=== PATIENT | male | born 1965 | race Two or more races ===

== ENCOUNTER 2018-07-22 17:51 | Emergency (ER) | payer OTHER ==
[~2018-07-22] VITALS: Ht 188 cm; Wt 104.3 kg
[2018-07-22] MEDS ORDERED: ONDANSETRON 4 MG TAB.RAPDIS ONE (18:24)
[2018-07-22] MEDS ORDERED: IV NS 0.9% 1,000 ML BAG IV ONE ×2 (18:30→21:30)
[2018-07-22] MEDS ORDERED: ONDANSETRON 4 MG TAB.RAPDIS PO ONE (18:30)
[2018-07-22 18:40] LABS: BASOPHILS % (AUTO) 0.2 % (0.0-2.0); EOSINOPHILS % (AUTO) 0.1 % (0.0-6.0); HEMATOCRIT 47 % (39-51); LYMPHOCYTES # (AUTO) 0.8 /CMM (0.8-4.8); LYMPHOCYTES % (AUTO) 7.5 % (20.0-44.0); MEAN CORPUSCULAR HGB CONC 34 g/dl (31.0-36.0); MEAN CORPUSCULAR VOLUME 92 fL (80-96); MONOCYTES # (AUTO) 0.7 /CMM (0.1-1.30); MONOCYTES % (AUTO) 6.1 % (2.0-12.0); NEUTROPHILS # (AUTO) 9.4 /CMM (1.8-8.9); NEUTROPHILS % (AUTO) 86.1 % (43.0-81.0); PLATELET COUNT (AUTO) 173 /CMM (150-450); RED BLOOD CELL COUNT(AUTO) 5.11 MIL/uL (4.5-6.0); WHITE BLOOD COUNT (AUTO) 10.9 K/uL (4.3-11.0)
--- NOTE | 2018-07-22 18:40 | NUR ---
N/V SINCE 1100, MILD ABD PAIN, THEN DULL/THROBBING SUBSTERNAL CP. PT AAOX4, VSS. DENIES SOB,DIZZINESS, DIARRHEA @ THIS TIME. PT SEEN & EVAL'D BY KISHA RUGGIERO. PLACED ON BUFFET RUNNER, NSR, NO ECTOPY NOTED. MEDICATED FOR NAUSEA & WILL CONT TO MONITOR.
[2018-07-22 18:47] LABS: CALCIUM, SERUM 9.2 mg/dL (8.5-10.1); CARBON DIOXIDE 28 mmol/L (21-32); CHLORIDE 105 mmol/L (98-107); CREATININE 1.8 mg/dL (0.6-1.3); GLUCOSE 148 mg/dL (74-106); POTASSIUM 4.7 mmol/L (3.5-5.1); SODIUM SERUM 142 mmol/L (136-145); UREA NITROGEN, BLOOD 24 mg/dL (7-18)
[2018-07-22 18:53] LABS: ALANINE AMINOTRANSFERASE 64 U/L (12-78); ALBUMIN 4.1 g/dL (3.4-5.0); ALKALINE PHOSPHATASE 99 U/L (46-116); ASPARTATE AMINOTRANSFERASE 37 U/L (15-37); BILIRUBIN,DIRECT 0.1 mg/dL (0.0-0.2); BILIRUBIN,TOTAL 0.5 mg/dL (0.2-1.0); TOTAL PROTEIN, SERUM 7.1 g/dL (6.4-8.2)
--- NOTE | 2018-07-22 19:16 | NUR ---
RECEIVED REPORT FROM AMANDA MCDOWELL FOR CARLITA
--- NOTE | 2018-07-22 19:24 | NUR ---
FLU SWAB COLLECTED AND SENT TO LAB
[2018-07-22] MEDS ORDERED: MORPHINE SULFATE INJ 4 MG/ML DISP.SYRIN ONE (19:27)
[2018-07-22] MEDS ORDERED: MORPHINE SULFATE INJ 2 MG/ML DISP.SYRIN IV ONE (19:30)
--- NOTE | 2018-07-22 19:30 | NUR ---
PT UNABLE TO PROVIDE URINE SAMPLE AT THIS TIME. ER PA AWARE
--- NOTE | 2018-07-22 19:51 | NUR ---
URINE COLLECTED AND SENT TO LAB
[2018-07-22 20:06] LABS: APPEARANCE,URINE Clear (CLEAR); BILIRUBIN,URINE Negative (NEGATIVE); BLOOD, URINE Negative Ery/uL (NEGATIVE); COLOR,URINE Dark (YELLOW); KETONES,URINE 15 (NEGATIVE); LEUKOCYTE ESTERASE ,URINE Negative (NEGATIVE); NITRITE, URINE Negative (NEGATIVE); PH,URINE 5.5 (5.0-8.0); PROTEIN,URINE 30 mg/dl (NEGATIVE); UGLUCOSE Negative (NEGATIVE); UROBILINOGEN,URINE 0.2 EU/dL (0.2)
[2018-07-22 20:23] LABS: BACTERIA,URINE Few /HPF (None Seen); MUCUS,URINE Many /LPF (None Seen); RBC,URINE 0-2 /HPF (0-2); SQUAMOUS EPITHELIAL CELL,UR Few /HPF (None Seen); WBC,URINE 0-2 /HPF (0-3)
[2018-07-22] MEDS ORDERED: IOHEXOL-350 100 ML VIAL IV ONE (21:24)
[2018-07-22] MEDS ORDERED: CT SWABBABLE VALVE TRANS SET 1 EA INFUS.SET MC ONE (21:24)
[2018-07-22] MEDS ORDERED: IV NS 0.9% 250 ML IV ONE (21:25)
--- NOTE | 2018-07-22 21:32 | NUR ---
PT BROUGHT BY RADIOLOGY FOR CT
--- NOTE | 2018-07-22 22:50 | NUR ---
CALLED [facility] SPOKE WITH KAMILLE, FAXED OVER LABS AND IMAGES.
[2018-07-22] MEDS ORDERED: LABETALOL 20 MG/4 ML VIAL IV ONE (23:00)
--- NOTE | 2018-07-22 23:01 | NUR ---
Dr Gooden paged per dr Kate
--- NOTE | 2018-07-22 23:06 | NUR ---
Dr Merrill paged per dr Kate.
[2018-07-22] MEDS ORDERED: LABETALOL HCL IV 100MG VIAL ONE (23:14)
--- NOTE | 2018-07-22 23:15 | NUR ---
Alfonso called for [facility] transport, ETA 0045.
--- NOTE | 2018-07-22 23:16 | NUR ---
[facility] does not have dye house wheel operator units available
--- NOTE | 2018-07-22 23:18 | NUR ---
CALLED [facility] FOR TRANSPORT ETA OF 30 MINS WAS GIVEN.
--- NOTE | 2018-07-22 23:19 | NUR ---
[facility] has no roll up machine operator units available magdiel
[2018-07-22] MEDS ORDERED: LABETALOL HCL IV 100MG VIAL IV ONE (23:30)
[2018-07-22 23:34] VITALS: BP 128/54
--- NOTE | 2018-07-22 23:36 | NUR ---
GAVE REPORT TO NÉSTOR BRIONES RN FOR CARLITA
--- NOTE | 2018-07-22 23:40 | NUR ---
GAVE REPORT TO WILLIAMS MCNEILL FOR CARLITA
== END 2018-07-22 23:46 | disposition short-term general hospital (02) ==
LOC: ER 17:54
DX: I71.00 Dissection of unspecified site of aorta (principal); R55 Syncope and collapse; K21.9 Gastro-esophageal reflux disease without esophagitis; F17.200 Nicotine dependence, unspecified, uncomplicated; I25.10 Atherosclerotic heart disease of native coronary artery without angina pectoris; F43.9 Reaction to severe stress, unspecified; Z90.89 Acquired absence of other organs; Z60.2 Problems related to living alone
CPT/HCPCS: 36415; 71045-TC; 74175-TC; 80048-TC; 80076-TC; 81000-TC; 83690-TC; 84484-TC; 85025-TC; 85378-TC; 85730-TC; 87400; J2270; J3490; J7030; J7050; Q0162; Q9967

== ENCOUNTER 2018-08-07 20:56 | Inpatient (IN) | payer OTHER ==
[~2018-08-07] VITALS: Ht 188 cm; Wt 97.5 kg
[2018-08-07] MEDS ORDERED: DILTIAZEM HCL 50 MG IV IV ONE ×2 (21:00→22:00)
--- NOTE | 2018-08-07 21:09 | NUR ---
[id number] FROM HOME C/O PALPITATIONS X 45 MIN. PATIENT S/P SURGERY FOR AORTIC DISSECTION X 2 WEEKS AGO. PER RA PATIENT IN AFIB W/RVR. PT IS AOX4, AMBULATORY, RR EVEN AND UNLABORED. SKIN WARM TO TOUCH, DRY, INTACT. NO ACUTE DISTRESS NOTED. DENIES PAIN, SOB, DIZZINESS, WEAKNESS, N/V/D. SEEN BY DR SMITH.
[2018-08-07 21:12] LABS: BASOPHILS # (AUTO) 0.1 /CMM (0.0-0.2); BASOPHILS % (AUTO) 0.9 % (0.0-2.0); EOSINOPHILS % (AUTO) 1.9 % (0.0-6.0); HEMATOCRIT 35 % (39-51); HEMOGLOBIN 11.7 g/dL (13.5-17.5); LYMPHOCYTES # (AUTO) 1.5 /CMM (0.8-4.8); LYMPHOCYTES % (AUTO) 12.9 % (20.0-44.0); MEAN CORPUSCULAR HGB CONC 33 g/dl (31.0-36.0); MEAN CORPUSCULAR VOLUME 93 fL (80-96); MONOCYTES # (AUTO) 1.2 /CMM (0.1-1.30); NEUTROPHILS # (AUTO) 8.3 /CMM (1.8-8.9); NEUTROPHILS % (AUTO) 73.3 % (43.0-81.0); PLATELET COUNT (AUTO) 544 /CMM (150-450); RED BLOOD CELL COUNT(AUTO) 3.82 MIL/uL (4.5-6.0); WHITE BLOOD COUNT (AUTO) 11.4 K/uL (4.3-11.0)
[2018-08-07] MEDS ORDERED: DILTIAZEM HCL 25 MG IV ONE ×2 (21:17→22:52)
[2018-08-07 21:21] LABS: CALCIUM, SERUM 8.4 mg/dL (8.5-10.1); CARBON DIOXIDE 23 mmol/L (21-32); CHLORIDE 100 mmol/L (98-107); CREATININE 1.3 mg/dL (0.6-1.3); GLUCOSE 168 mg/dL (74-106); POTASSIUM 4.1 mmol/L (3.5-5.1); SODIUM SERUM 135 mmol/L (136-145); UREA NITROGEN, BLOOD 20 mg/dL (7-18)
--- NOTE | 2018-08-07 21:21 | NUR ---
XRAY AT BEDSIDE
[2018-08-07 21:36] LABS: ALANINE AMINOTRANSFERASE 51 U/L (12-78); ALKALINE PHOSPHATASE 109 U/L (46-116); ASPARTATE AMINOTRANSFERASE 29 U/L (15-37); BILIRUBIN,DIRECT 0.2 mg/dL (0.0-0.2); BILIRUBIN,TOTAL 0.5 mg/dL (0.2-1.0); TOTAL PROTEIN, SERUM 6.9 g/dL (6.4-8.2)
[2018-08-07] MEDS ORDERED: DILTIAZEM HCL 50 MG IV ONE ×3 (21:59→23:00)
[2018-08-07] MEDS ORDERED: IV NS 0.9% 500 ML BAG IV ONE (22:00)
--- NOTE | 2018-08-07 22:06 | NUR ---
PT SITTING COMFORTABLY IN BED. WILL CONT TO CLOSELY MONITOR.
[2018-08-07] MEDS ORDERED: IOHEXOL-300 100 ML VIAL IV ONE (22:25)
[2018-08-07] MEDS ORDERED: IV NS 0.9% 250 ML IV ONE (22:26)
[2018-08-07] MEDS ORDERED: CT SWABBABLE VALVE TRANS SET 1 EA INFUS.SET MC ONE (22:26)
--- NOTE | 2018-08-07 22:28 | NUR ---
PT TAKEN TO CT VIA DIANN
--- NOTE | 2018-08-07 22:39 | NUR ---
PT RETURNED FROM CT
[2018-08-07] MEDS ORDERED: DILTIAZEM HCL IV 125 MG in IV D5W 100 ML IV PRN (23:00)
--- NOTE | 2018-08-07 23:17 | NUR ---
PT RESTING COMFORTABLY WITH EYES CLOSED. STARTED ON CARDIZEM DRIP. WILL CLOSELY MONITOR
--- NOTE | 2018-08-07 23:45 | NUR ---
ENDORSEMENT GIVEN TO JULY MENDEZ FOR CARLITA
--- NOTE | 2018-08-07 23:45 | NUR ---
RECEIVED REPORT FROM ANNALISE MCDOWELL FOR CARLITA
[2018-08-08] VITALS (31 sets, daily range): BP systolic 100–142; BP diastolic 44–85
[2018-08-08] MEDS ORDERED: AMIODARONE 150 MG/3 ML VIAL IV ONE ×2 (00:24→00:26)
[2018-08-08] MEDS ORDERED: AMIODARONE 150 MG in IV D5W 100 ML IV ONE (00:30)
[2018-08-08] MEDS ORDERED: AMIODARONE 900 MG in IV D5W 482 ML IV PRN ×2 (00:30→10:30)
[2018-08-08] MEDS ORDERED: HYDR-4354 PO (01:02)
[2018-08-08] MEDS ORDERED: METOPROLOL (01:02)
[2018-08-08] MEDS ORDERED: COUMADIN (01:02)
[2018-08-08] MEDS ORDERED: DOCU (01:02)
--- NOTE | 2018-08-08 01:10 | NUR ---
GAVE REPORT TO JON MCDOWELL FOR CARLITA
--- NOTE | 2018-08-08 01:30 | NUR ---
PT TRANSFERED PER ACLS PROTOCOL
[2018-08-08] MEDS: HYDROCODONE/APAP 5/325MG 1 EACH TABLET PO PRN ×3 (02:14→20:34)
[2018-08-08] MEDS ORDERED: ZOLPIDEM TARTRATE 5 MG TABLET PO PRN (02:30)
[2018-08-08] MEDS ORDERED: Z GUARD REMEDY 2 OZ OINT TP PRN (02:30)
[2018-08-08] MEDS ORDERED: ACETAMINOPHEN 325 MG TABLET PO PRN (02:30)
[2018-08-08] MEDS ORDERED: ONDANSETRON HCL/PF 4 MG/2 ML VIAL IVP PRN (02:30)
--- NOTE | 2018-08-08 07:45 | NUR ---
rn nicu note received patient in bed alert , oriented x3 , on tele monitor with afib hr 145 , no c\o chest pain at this time , rt ac and lt hand hl intact , on amiodarone drip 0.5 mg per hospital protocol , bed in lowest and locked position , having breakfast at this time , plan of care discussed with patient will cont to monitor close Addendum: 08/08/18 at 0752 by ISAI PÉREZ RN spoke wit dr aaron learning support assistant aware that patient with afib hr 145, stated that will see patient soon
[2018-08-08] MEDS ORDERED: IV LR 500 ML IV ONE ×2 (08:00→09:00)
[2018-08-08 08:58] LABS: BASOPHILS # (AUTO) 0.1 /CMM (0.0-0.2); BASOPHILS % (AUTO) 0.8 % (0.0-2.0); EOSINOPHILS % (AUTO) 1.2 % (0.0-6.0); HEMATOCRIT 34 % (39-51); HEMOGLOBIN 11.3 g/dL (13.5-17.5); LYMPHOCYTES % (AUTO) 10.5 % (20.0-44.0); MEAN CORPUSCULAR HGB CONC 33 g/dl (31.0-36.0); MEAN CORPUSCULAR VOLUME 93 fL (80-96); MONOCYTES # (AUTO) 0.5 /CMM (0.1-1.30); MONOCYTES % (AUTO) 5.8 % (2.0-12.0); NEUTROPHILS # (AUTO) 7.5 /CMM (1.8-8.9); NEUTROPHILS % (AUTO) 81.7 % (43.0-81.0); PLATELET COUNT (AUTO) 482 /CMM (150-450); RED BLOOD CELL COUNT(AUTO) 3.66 MIL/uL (4.5-6.0); WHITE BLOOD COUNT (AUTO) 9.1 K/uL (4.3-11.0)
[2018-08-08 09:25] LABS: CALCIUM, SERUM 8.8 mg/dL (8.5-10.1); CREATININE 1.2 mg/dL (0.6-1.3)
--- NOTE | 2018-08-08 09:26 | NUR ---
LINDERMAN MACHINE OPERATOR NOTE SEEN BY DR TOBIAS BOAT CANVAS INSTALLER NOTIFIED 5HAT HR AFIB 148 AND PATIENT ON AMIODARONE DRIP STATED OK CONT TO HAVE DRIP TO COMPLEAT AND WILL F\U WITH Addendum: 08/08/18 at 0934 by SIAI PÉREZ RN PER DR AMAURI FRANK TO GIVE LA 500 BOLUS . SANDRA SPOKE ABOUT COUMARIN ORDERED SALTED TO HOLD FOR NOW INR IS3.07 Addendum: 08/08/18 at 0947 by ISAI PÉREZ RN SPOKE WITH PHARMACIST NOTIFIED THAT PER DR SAINI BOAT CANVAS INSTALLER OK TO COMPLETE AMIODARONE DRIP AND AFTER CALL TO IF STILL AFIB CONT DRIP AT 0.5 MG IF CONVERTED TO SR WILL START PO AMIODARONE Addendum: 08/08/18 at 1036 by ISAI PÉREZ RN CORRECTION SPELLING ZAC TO GIVE LR 500 ML BOLUS AND HOLD COUMADIN FOR NOW ,INR 3.07
[2018-08-08] MEDS ORDERED: IV LR 1000 ML 1,000 ML IV PRN (09:30)
--- NOTE | 2018-08-08 10:00 | NUR ---
POULTRY DRESSING WORKER NOTE DR SAINI NOTIFIED THAT ON TELE MONITOR AFIB HR 145-150 ,STATED TO CONT TO ADMINISTER AMIODARONE DRIP TILL COMPLETED
--- NOTE | 2018-08-08 10:50 | NUR ---
HUMANITIES INSTRUCTOR NOTE DR MESA CALLED WITH ORDER 20 MG IVP LASIX AND COUMADIN 2.MG AWARE THAT INR EARLIER WAS 3.07,2D ECHO DOING NOW AT BEDSIDE
[2018-08-08] MEDS ORDERED: FUROSEMIDE 20 MG/2 ML VIAL IV SCH (11:00)
--- NOTE | 2018-08-08 11:11 | NUR ---
VOLLEYBALL REFEREE EDUARDO SPOKE WITH DR SAINI NOTIFIED THAT PER ORDER DR MARTEL CARDIAC SURGEON GIVE ORDER LASIX 20 MG IVP FOR NOW , HOLD LASIX FOR NOW AND HE WILL TALK TO DR MESA, PHONE NUMBER GIVEN, WILL F]U
--- NOTE | 2018-08-08 12:21 | NUR ---
PROJECT OFFICER NOTE SEEN BY DR PATE ,WITH NEW ORDER TO DO CHEST X RAY IN AM ,WILL F\U
--- NOTE | 2018-08-08 13:34 | NUR ---
WARDROBE MISTRESS NOTE SPOKE WITH DR MESA , NOTIFIED THAT PER DR SAINI ZIGZAG STITCHER OK TO HOLD LASIX , STATED ITS OK
--- NOTE | 2018-08-08 13:42 | NUR ---
BRAKE RIDER NOTE SEEN BY DR MESA AWARE THAT HR 139 AFIB WITH ORDER DIGOXIN TIME ONE, WILL F\U Addendum: 08/08/18 at 1548 by ISAI PÉREZ RN 1342 DR MESA NOTIFIED THAT ON TELE MONITOR AFIB HR 139-145 AT THIS TIME , STATED OK TO CONT TO ADMINISTERED AMIODARONE DRIP ALSO GAVE ORDER TO GIVE DIGOXIN 0.5 MG IV ONE TIME Addendum: 08/08/18 at 1835 by ISAI PÉREZ RN PER DR MARTEL GIVE 2MG OF COUMADIN AWARE OF INR RESULT
[2018-08-08] MEDS ORDERED: DIGOXIN INJ 0.5 MG/2 ML AMPUL IV ONE (14:00)
--- NOTE | 2018-08-08 16:38 | NUR ---
ACCOUNT DEVELOPMENT REPRESENTATIVE NOTE C\O GENERALIZED CHEST PAIN AND BODY PAIN NORCO PO GIVEN SAT 95%
[2018-08-08] MEDS ORDERED: WARFARIN SODIUM 2 MG TABLET PO SCH (17:00)
[2018-08-08] MEDS ORDERED: WARFARIN SODIUM 1 MG TABLET PO SCH (17:00)
--- NOTE | 2018-08-08 17:38 | NUR ---
SPLIT AND DRUM ROOM SUPERVISOR NOTE SPOKE WITH DR MARTEL NOTIFIED THAT ON TELE MONITOR AFIB 140-144 ,ORDERED 2GM OF MAG IV AND CARDIZEM DRIP 10 MG \HR ALSO OK TO CONT TO ADMINISTER AMIODARONE DRIP
[2018-08-08] MEDS: Magnesium 1GM/D5W 100ML PREMIX 100 ML IV SCH ×2 (17:44→18:43)
[2018-08-08] MEDS: DILTIAZEM HCL IV 125 MG in IV D5W 100 ML IV PRN (18:00)
--- NOTE | 2018-08-08 18:00 | NUR ---
PORTABLE GRINDING MACHINE OPERATOR NOTE PER DR MESA STARTED CARDIZEM DRIP 10 MG\HR AND MAG 1 GM IV START TO INFUSE .CONT TO ADMINISTER AMIODARONE DRIP
[2018-08-09] VITALS (40 sets, daily range): BP systolic 101–140; BP diastolic 48–85
[2018-08-09] MEDS: HYDROCODONE/APAP 5/325MG 1 EACH TABLET PO PRN ×2 (03:49→20:10)
[2018-08-09] MEDS ORDERED: DILTIAZEM HCL 50 MG IV ONE (03:54)
[2018-08-09] MEDS: DILTIAZEM HCL IV 125 MG in IV D5W 100 ML IV PRN (04:16)
[2018-08-09 05:19] LABS: ALBUMIN 2.8 g/dL (3.4-5.0); BILIRUBIN,TOTAL 0.4 mg/dL (0.2-1.0); CALCIUM, SERUM 8.2 mg/dL (8.5-10.1); CREATININE 1.2 mg/dL (0.6-1.3); MAGNESIUM 1.9 mg/dL (1.8-2.4); PHOSPHORUS 3.1 mg/dL (2.5-4.9); POTASSIUM 3.9 mmol/L (3.5-5.1); TOTAL PROTEIN, SERUM 6.3 g/dL (6.4-8.2)
[2018-08-09 05:21] LABS: BASOPHILS # (AUTO) 0.1 /CMM (0.0-0.2); BASOPHILS % (AUTO) 0.9 % (0.0-2.0); EOSINOPHILS % (AUTO) 2.7 % (0.0-6.0); HEMATOCRIT 34 % (39-51); HEMOGLOBIN 11.1 g/dL (13.5-17.5); LYMPHOCYTES # (AUTO) 1.1 /CMM (0.8-4.8); MEAN CORPUSCULAR HGB CONC 33 g/dl (31.0-36.0); MEAN CORPUSCULAR VOLUME 93 fL (80-96); MONOCYTES # (AUTO) 0.8 /CMM (0.1-1.30); MONOCYTES % (AUTO) 8.5 % (2.0-12.0); NEUTROPHILS # (AUTO) 7.4 /CMM (1.8-8.9); NEUTROPHILS % (AUTO) 76.9 % (43.0-81.0); PLATELET COUNT (AUTO) 467 /CMM (150-450); RED BLOOD CELL COUNT(AUTO) 3.64 MIL/uL (4.5-6.0); WHITE BLOOD COUNT (AUTO) 9.6 K/uL (4.3-11.0)
[2018-08-09 05:33] LABS: THYROID STIMULATING HORMONE 1.328 uIU/mL (0.358-3.74)
--- NOTE | 2018-08-09 06:23 | NUR ---
PT REMAINS IN NO ACUTE DISTRESS IN BED. PT REMAINS ON CARDIZEM @ 10ML/HR WITH AFIB @ 108-125 BPM. PT NOT C/O ANY SOB OR DIFFICULTY BREATHING AT THIS TIME. PAIN MANAGEMENT CONTROLLED WITH NORCO 5-325. WILL ENDORSE CARE TO AM RN FOR CONTINUITY OF CARE.
--- NOTE | 2018-08-09 07:15 | NUR ---
HEATING OPERATORS ENGINEER OPENING NOTES RECEIVED PT IN BED, AWAKE A/OX4. PT IS AFIB 108-120. ON CARDIZEM DRIP AT 12ML/HR. GOAL HR 110. PT IS ON ROOM AIR O2 SAT 92%. BP WNL. PT HAS URINAL AT BEDSIDE CLEAR TWILA OUTPUT. PT COMPLAINING OF LIGHT HEADEDNESS.BED IN LOCKED/LOWEST POSITION. CALL LIGHT IN REACH.
--- NOTE | 2018-08-09 08:15 | NUR ---
CHEMICAL PUMPER NOTES MOORE,MANAGER LEAN ROUNDING WITH PT.
--- NOTE | 2018-08-09 08:30 | NUR ---
RT PATIENT REFUSED ABG DRAW. PATIENT AWAKE, ALERT, ZERO SOB, ON ROOM AIR. DID NOT WANT ABG DONE. RN NOTIFIED
[2018-08-09] MEDS: AMIODARONE HCL 200 MG TABLET PO SCH ×2 (09:25→20:09)
--- NOTE | 2018-08-09 15:16 | NUR ---
AUTO JOB ESTIMATOR NOTES PER DR SAINI EKG REVIEWED. PT CONVERTED TO NSR 88BPM. PT TO BE TITRATED TO 12MCG/HR DILTIAZEM.
--- NOTE | 2018-08-09 15:23 | NUR ---
DIRECTOR OF CONTENT MARKETING NOTES PER DR SAINI GIVE 3 TAB WARFARIN TODAY. Addendum: 08/09/18 at 1524 by SERG ALVARADO RN 3 TAB=3MG
--- NOTE | 2018-08-09 15:30 | NUR ---
STORM WINDOW INSTALLER NOTES PER DR ZI CENTENO TO BE DC'D. REPLACE WITH PO.
--- NOTE | 2018-08-09 15:35 | NUR ---
ADVERTISING PROJECT MANAGER NOTES PER ZAC MCCLURE TO GIVE 3MG WARFARIN TODAY.
--- NOTE | 2018-08-09 15:39 | NUR ---
DADO OPERATOR NURSE PER CHARGE NURSE, OK TO TITRATE CARDIZEM TO 10MG/HR.
--- NOTE | 2018-08-09 16:33 | NUR ---
MAXILLOFACIAL SURGEON NOTES DR PINON ROUNDING WITH PT. NO NEW ORDERS GIVEN
[2018-08-09] MEDS ORDERED: WARFARIN SODIUM 1 MG TABLET PO SCH (17:00)
[2018-08-09] MEDS: DILTIAZEM HCL 30 MG TABLET PO SCH (17:49)
--- NOTE | 2018-08-09 19:21 | NUR ---
ENVIRONMENTAL STUDIES PROFESSOR NOTES REPORT GIVEN TO PM NURSE FOR CARLITA. PT IS NOT IN DISTRESS. ALL NEEDS ATTENDED TO. CALL LIGHT IN REACH.
--- NOTE | 2018-08-09 20:00 | NUR ---
ASSISTANT MERCHANDISE MANAGER - NOTES - RECEIVED PT IN BED, AWAKE A/OX4. PT IS IN SR 80S. PT IS ON ROOM AIR O2 SAT 94%. BP WNL. PT HAS URINAL AT BEDSIDE CLEAR TWILA OUTPUT. PT COMPLAINING OF LIGHT HEADEDNESS.BED IN LOCKED/LOWEST POSITION. CALL LIGHT IN REACH.
[2018-08-10] VITALS (26 sets, daily range): BP systolic 105–135; BP diastolic 55–95
[2018-08-10] MEDS: DILTIAZEM HCL 30 MG TABLET PO SCH ×2 (00:03→05:35)
[2018-08-10] MEDS: HYDROCODONE/APAP 5/325MG 1 EACH TABLET PO PRN (00:29)
[2018-08-10 04:27] LABS: BASOPHILS # (AUTO) 0.1 /CMM (0.0-0.2); BASOPHILS % (AUTO) 1.1 % (0.0-2.0); EOSINOPHILS % (AUTO) 4.4 % (0.0-6.0); HEMATOCRIT 33 % (39-51); HEMOGLOBIN 11.1 g/dL (13.5-17.5); LYMPHOCYTES # (AUTO) 1.1 /CMM (0.8-4.8); LYMPHOCYTES % (AUTO) 13.5 % (20.0-44.0); MEAN CORPUSCULAR HGB CONC 34 g/dl (31.0-36.0); MEAN CORPUSCULAR VOLUME 92 fL (80-96); MONOCYTES # (AUTO) 0.9 /CMM (0.1-1.30); MONOCYTES % (AUTO) 11.5 % (2.0-12.0); NEUTROPHILS # (AUTO) 5.4 /CMM (1.8-8.9); NEUTROPHILS % (AUTO) 69.5 % (43.0-81.0); PLATELET COUNT (AUTO) 396 /CMM (150-450); WHITE BLOOD COUNT (AUTO) 7.8 K/uL (4.3-11.0)
[2018-08-10 04:35] LABS: CALCIUM, SERUM 8.4 mg/dL (8.5-10.1); CREATININE 1.1 mg/dL (0.6-1.3)
--- NOTE | 2018-08-10 06:27 | NUR ---
PT IS AWAKE ALERT ORIENTED X4, NO SIGNS OF DISTRESS, PT IS IN NSR 80S, BP WNL. NO PAIN, PT GOT SUFFICIENT SLEEP LAST NIGHT
[2018-08-10] MEDS: AMIODARONE HCL 200 MG TABLET PO SCH (08:14)
[2018-08-10] MEDS ORDERED: DILTIAZEM HCL CD 240 MG PO SCH (09:00)
--- NOTE | 2018-08-10 13:03 | NUR ---
RN NOTE PATIENT DISCHARGED HOME. PAPERWORK COMPLETED AND SIGNED. IV SITE AND ID REMOVED.
[2018-08-15] MEDS ORDERED: AMIO200T4 PO ×2 (16:14)
== END 2018-08-10 13:05 | disposition home or self-care (01) | DRG 308 ==
LOC: ER 20:59 → ICU 08-08 00:16
PROVIDERS: ADMIT Internal Medicine; ATTEND Internal Medicine
DX: I48.91 Unspecified atrial fibrillation (principal); I71.01 Dissection of thoracic aorta; D68.59 Other primary thrombophilia; E87.1 Hypo-osmolality and hyponatremia; E44.0 Moderate protein-calorie malnutrition; J90 Pleural effusion, not elsewhere classified; I31.3 Pericardial effusion (noninflammatory); I31.4 Cardiac tamponade; D72.829 Elevated white blood cell count, unspecified; E86.1 Hypovolemia; Z98.890 Other specified postprocedural states; I10 Essential (primary) hypertension; R09.02 Hypoxemia; Z86.79 Personal history of other diseases of the circulatory system; D63.8 Anemia in other chronic diseases classified elsewhere; D47.3 Essential (hemorrhagic) thrombocythemia; Z79.01 Long term (current) use of anticoagulants; Z95.2 Presence of prosthetic heart valve
CPT/HCPCS: 36415; 71045-TC; 71260-TC; 80048-TC; 80053-TC; 80061-TC; 80076-TC; 83735-TC; 84100-TC; 84443-TC; 84484-TC; 85025-TC; 85610-TC; 85730-TC; 87081-TC; 93307-TC; G0378; J0282; J1160; J3475; J3490; J7040; J7050; J7060; J7120; Q9967

== ENCOUNTER 2018-08-14 08:14 | Inpatient (IN) | payer OTHER ==
[~2018-08-14] VITALS: Ht 188 cm; Wt 95.7 kg
[2018-08-14] VITALS (29 sets, daily range): BP systolic 74–125; BP diastolic 48–83
[~2018-08-14 08:14] MED LIST: COUMADIN; DOCU; HYDR-4354 PO; METOPROLOL
[2018-08-14] MEDS ORDERED: METOPROLOL TARTRATE INJ 5 MG/5 ML AMPUL ONE ×3 (08:28→09:00)
[2018-08-14] MEDS ORDERED: METOPROLOL TARTRATE INJ 5 MG/5 ML AMPUL IVP ONE (08:30)
[2018-08-14 08:42] LABS: BASOPHILS # (AUTO) 0.1 /CMM (0.0-0.2); BASOPHILS % (AUTO) 1.2 % (0.0-2.0); HEMATOCRIT 42 % (39-51); HEMOGLOBIN 13.6 g/dL (13.5-17.5); LYMPHOCYTES # (AUTO) 1.1 /CMM (0.8-4.8); LYMPHOCYTES % (AUTO) 13.7 % (20.0-44.0); MEAN CORPUSCULAR HGB CONC 33 g/dl (31.0-36.0); MEAN CORPUSCULAR VOLUME 92 fL (80-96); MONOCYTES # (AUTO) 0.8 /CMM (0.1-1.30); NEUTROPHILS # (AUTO) 5.9 /CMM (1.8-8.9); NEUTROPHILS % (AUTO) 71.1 % (43.0-81.0); PLATELET COUNT (AUTO) 363 /CMM (150-450); RED BLOOD CELL COUNT(AUTO) 4.51 MIL/uL (4.5-6.0); WHITE BLOOD COUNT (AUTO) 8.2 K/uL (4.3-11.0)
[2018-08-14 08:48] LABS: CALCIUM, SERUM 8.7 mg/dL (8.5-10.1); CARBON DIOXIDE 26 mmol/L (21-32); CHLORIDE 99 mmol/L (98-107); CREATININE 1.3 mg/dL (0.6-1.3); GLUCOSE 125 mg/dL (74-106); POTASSIUM 3.8 mmol/L (3.5-5.1); SODIUM SERUM 134 mmol/L (136-145); UREA NITROGEN, BLOOD 18 mg/dL (7-18)
[2018-08-14] MEDS ORDERED: WARF1TAB86 PO (08:54)
[2018-08-14] MEDS ORDERED: HYDR-4384 PO (08:54)
[2018-08-14] MEDS ORDERED: DILT240C53 PO (08:54)
[2018-08-14] MEDS ORDERED: DOCU100C58 PO (08:54)
[2018-08-14] MEDS ORDERED: METO50TA16 PO (08:54)
[2018-08-14] MEDS ORDERED: METOPROLOL TARTRATE INJ 5 MG/5 ML AMPUL IV ONE ×2 (09:00)
[2018-08-14] MEDS ORDERED: AMIO100T PO (09:02)
--- NOTE | 2018-08-14 09:03 | NUR ---
PANEL ON-CALL PAGED,HOUSE SUP FOR ICU BED
--- NOTE | 2018-08-14 09:10 | NUR ---
CARDIOLOGY ON-CALL PAGED
[2018-08-14] MEDS ORDERED: DILTIAZEM HCL IV 125 MG in IV NS 0.9% 100 ML IV PRN (09:30)
--- NOTE | 2018-08-14 09:38 | NUR ---
DRIP STARTED, TITRATE TO EFFECT PER RX.
--- NOTE | 2018-08-14 10:33 | NUR ---
PT ENDORSED TO [facility], [place], [facility]PER[facility] BY [facility] ICU BED 256. PT TRANSPORTED, BEDSIDE HANDOVER, IVC AT R AC INTACT AND OPERATIONAL WITH DRIP TITRATED PER RX.
--- NOTE | 2018-08-14 11:05 | NUR ---
received pt from ER, s/p Afib with RVR, HR 132, on Cardizem drip at 8mg/hr, a/o x4, on 2L 02 sat well, lungs partially congested, no edema, tolerates diet, uses urinal, v/s stable, no pain, pt turns and repositions by himself.
[2018-08-14] MEDS ORDERED: ACETAMINOPHEN 325 MG TABLET PO PRN (12:30)
[2018-08-14] MEDS ORDERED: Z GUARD REMEDY 2 OZ OINT TP PRN (12:30)
[2018-08-14] MEDS ORDERED: ONDANSETRON HCL/PF 4 MG/2 ML VIAL IVP PRN (12:30)
[2018-08-14] MEDS ORDERED: ZOLPIDEM TARTRATE 5 MG TABLET PO PRN (12:30)
--- NOTE | 2018-08-14 12:40 | NUR ---
pt is resting in the bed, A fib uncontrolled, on Cardizem drip at 8mg, v/s stable, no pain.
--- NOTE | 2018-08-14 16:50 | NUR ---
pt is resting in the bed, a/o x4, on Cardizem drip at 8mg/hr, A fib uncontrolled, good urine output, v/s stable, no pain.
[2018-08-14] MEDS ORDERED: AMIODARONE 900 MG in IV D5W 482 ML IV PRN (17:00)
[2018-08-14] MEDS: DOCUSATE SODIUM 100 MG CAPSULE PO SCH (17:04)
[2018-08-14] MEDS: WARFARIN SODIUM 1 MG TABLET PO SCH (17:06)
[2018-08-14] MEDS: METOPROLOL TARTRATE 50 MG TABLET PO SCH (17:09)
[2018-08-14] MEDS ORDERED: AMIODARONE 150 MG in IV D5W 100 ML IV ONE (17:30)
--- NOTE | 2018-08-14 19:15 | NUR ---
PILLOW FILLER RCD PT ASLEEP; PT IS AFIB ON MONITOR ON AMIODARONE AT 1 MG/MIN PER PROTOCOL. PT IS ON ROOM AIR. CONTINUE TO MONITOR.
--- NOTE | 2018-08-14 21:19 | NUR ---
AGRONOMY RESEARCH MANAGER PT REQUESTED NORCO FOR SLEEP; EDUCATED PT THAT NORCO IS USUALLY USED FOR PAIN AND HE HAS AMBIEN ORDERED WHICH IS USED A SLEEP AID; PT THEN REQUESTED AMBIEN BE GIVEN WITH NORCO; OFFERED PT AMBIEN AND HE AGREED TO IT AND EXPLAINED TO PT A CALL WOULD BE PLACED TO MD IF AMBIEN IS INEFFECTIVE; PT AGREED TO PLAN OF CARE.
--- NOTE | 2018-08-14 22:30 | NUR ---
VARNISH FILTERER PER PT AMBIEN EFFECTIVE; PT ASKING HOW MANY HE CAN HAVE PER NIGHT. ONCE AGAIN OFFERED PT EDUCATION ON PROPER USE OF MEDICATION. CONTINUE TO MONITOR.
--- NOTE | 2018-08-14 23:59 | NUR ---
COMPUTATIONAL THEORY SCIENTIST AMIODARONE DRIP DECREASED TO 0.5 MG PER PROTOCOL. CONTINUE TO MONITOR.
[2018-08-15] VITALS (29 sets, daily range): BP systolic 92–126; BP diastolic 46–88
--- NOTE | 2018-08-15 01:14 | NUR ---
CAMPUS RECRUITER PT NOTED TO BE NSR ON MONITOR.
--- NOTE | 2018-08-15 04:55 | NUR ---
NURSE EXTERN PT DECLINED BED BATH OR LINEN CHANGE. PT IS INDEPENDENT WITH ADLs.
[2018-08-15 05:19] LABS: BASOPHILS # (AUTO) 0.1 /CMM (0.0-0.2); BASOPHILS % (AUTO) 0.7 % (0.0-2.0); HEMATOCRIT 36 % (39-51); HEMOGLOBIN 12.3 g/dL (13.5-17.5); LYMPHOCYTES # (AUTO) 1.1 /CMM (0.8-4.8); MEAN CORPUSCULAR HGB CONC 34 g/dl (31.0-36.0); MEAN CORPUSCULAR VOLUME 91 fL (80-96); MONOCYTES # (AUTO) 0.9 /CMM (0.1-1.30); MONOCYTES % (AUTO) 10.5 % (2.0-12.0); NEUTROPHILS # (AUTO) 6.2 /CMM (1.8-8.9); NEUTROPHILS % (AUTO) 73.8 % (43.0-81.0); PLATELET COUNT (AUTO) 295 /CMM (150-450); WHITE BLOOD COUNT (AUTO) 8.4 K/uL (4.3-11.0)
[2018-08-15 05:32] LABS: CALCIUM, SERUM 8.2 mg/dL (8.5-10.1); CREATININE 1.1 mg/dL (0.6-1.3); MAGNESIUM 1.9 mg/dL (1.8-2.4); PHOSPHORUS 3.7 mg/dL (2.5-4.9); POTASSIUM 3.9 mmol/L (3.5-5.1)
--- NOTE | 2018-08-15 07:30 | NUR ---
RN OPENING NOTE: RECEIVED PATIENT IN BED, AWAKE, ALERT AND VERBALLY RESPONSIVE. RESPIRATION EVEN AND UNLABORED SATURATING 95% IN ROOM AIR. DENIED ANY PAIN. (R) AC IV SITE NOTED PATENT AND INTACT W/ AMIODARONE DRIP INFUSING AT 0.5MG/HR. PATIENT ON RECORD PRESSMAN SR HR 85. SEATED ON AN UPRIGHT POSITION. BED LOCKED AT ALL TIMES AND ON LOWEST POSITION. CALL LIGHT WITHIN REACH AND NEEDS ANTICIPATED.
[2018-08-15] MEDS: DOCUSATE SODIUM 100 MG CAPSULE PO SCH ×2 (08:34→18:11)
[2018-08-15] MEDS: METOPROLOL TARTRATE 50 MG TABLET PO SCH ×2 (08:34→18:12)
--- NOTE | 2018-08-15 12:05 | NUR ---
RN NOTE: REPORT WAS GIVEN TO CHARGE NURSE JULY KONG AT [facility] REGARDING THE PATIENT'S DOWNGRADE TO [facility]. RECEIVING NURSE WILL BE JULY VENTURA AT ROOM 119-2.
--- NOTE | 2018-08-15 12:18 | NUR ---
RN NOTE: CALLED AND PAGED [facility] SHIRLEY IN ORDER TO REPORT THE PT/INR RESULT. AWAITING FOR SYSTEM DEVELOPMENT ENGINEER'S RESPONSE. PATIENT CURRENTLY EATING LUNCH AT THIS TIME.
--- NOTE | 2018-08-15 12:55 | NUR ---
RN NOTE: PATIENT WAS TRANSPORTED VIA WHEELCHAIR TO [facility] ROOM 119-2 WITH THE PATIENT'S BELONGINGS. REPORT WAS GIVEN TO JULY VENTURA FOR CONTINUITY OF CARE AND INFORMED HIM THAT [facility] SHIRLEY WAS PAGED RE: THE PT/INR RESULT.
--- NOTE | 2018-08-15 13:40 | NUR ---
JULY NOTE: RECEIVED A RESPONSE FROM [facility] SHIRLEY RE: THE COUMADIN AND MESSAGE WAS CALLED TO JULY VENTURA THAT COUMADIN DOSE WAS OK TO GIVE AT 1700.
--- NOTE | 2018-08-15 13:49 | NUR ---
Received patient report from Zoey RN, ICU. Gave patient new IV site of right forearm 22G. Site covered with gauze to prevent patient from pulling out. Discontinued 18G. Will await visit from Doctor Raad MD, Cardiology, to give new by mouth amiodarone orders. Patient ambulatory with steady gait. Bowel movement at this time.
[2018-08-15] MEDS ORDERED: AMIO200T4 PO ×2 (16:14)
[2018-08-15] MEDS: WARFARIN SODIUM 1 MG TABLET PO SCH (18:11)
[2018-08-15] MEDS ORDERED: AMIODARONE HCL 200 MG TABLET PO SCH (21:00)
== END 2018-08-15 19:01 | disposition home or self-care (01) | DRG 309 ==
LOC: ER 08:16 → ICU 10:07 → TELE-TD 08-15 12:54
PROVIDERS: ADMIT Nurse Practitioner Acute Care; ATTEND Nurse Practitioner Acute Care
DX: I48.91 Unspecified atrial fibrillation (principal); D68.59 Other primary thrombophilia; E87.1 Hypo-osmolality and hyponatremia; I31.3 Pericardial effusion (noninflammatory); Z79.01 Long term (current) use of anticoagulants; Z98.890 Other specified postprocedural states; Z79.899 Other long term (current) drug therapy; Z86.79 Personal history of other diseases of the circulatory system; I10 Essential (primary) hypertension; Z95.2 Presence of prosthetic heart valve; D63.8 Anemia in other chronic diseases classified elsewhere; E86.1 Hypovolemia
CPT/HCPCS: 36415; 71045-TC; 80048-TC; 83735-TC; 84100-TC; 84484-TC; 85025-TC; 85610-TC; 85730-TC; 87081-TC; 93307-TC; G0378; J0282; J3490; J7030; J7060

== ENCOUNTER 2018-08-18 17:35 | Emergency (ER) | payer OTHER ==
[~2018-08-18] VITALS: Ht 182.9 cm; Wt 79.4 kg
[~2018-08-18 17:35] MED LIST changes: +AMIO200T4 PO; -COUMADIN; -DOCU; +DOCU100C58 PO; -HYDR-4354 PO; +HYDR-4384 PO; +METO50TA16 PO; -METOPROLOL; +WARF1TAB86 PO
[2018-08-18 18:39] VITALS: BP 137/84
[2018-08-18 19:19] LABS: BASOPHILS # (AUTO) 0.1 /CMM (0.0-0.2); BASOPHILS % (AUTO) 0.9 % (0.0-2.0); EOSINOPHILS % (AUTO) 2.8 % (0.0-6.0); HEMATOCRIT 38 % (39-51); HEMOGLOBIN 12.4 g/dL (13.5-17.5); LYMPHOCYTES % (AUTO) 12.8 % (20.0-44.0); MEAN CORPUSCULAR HGB CONC 33 g/dl (31.0-36.0); MEAN CORPUSCULAR VOLUME 93 fL (80-96); MONOCYTES # (AUTO) 0.9 /CMM (0.1-1.30); MONOCYTES % (AUTO) 10.9 % (2.0-12.0); NEUTROPHILS # (AUTO) 5.9 /CMM (1.8-8.9); NEUTROPHILS % (AUTO) 72.6 % (43.0-81.0); PLATELET COUNT (AUTO) 340 /CMM (150-450); RED BLOOD CELL COUNT(AUTO) 4.07 MIL/uL (4.5-6.0); WHITE BLOOD COUNT (AUTO) 8.2 K/uL (4.3-11.0)
--- NOTE | 2018-08-18 19:56 | NUR ---
INITIAL DUPLEX TANVI UPPER EXT RIGHT SHOWED POSSIBLE FOR DVT AT DISTAL RIGHT BRACHIAL VEIN. ADVISED ANNALISE (RN) AND AMARIS (PAC).
== END 2018-08-18 22:11 | disposition home or self-care (01) ==
LOC: ER 17:36
DX: I82.621 Acute embolism and thrombosis of deep veins of right upper extremity (principal); I71.00 Dissection of unspecified site of aorta; I48.0 Paroxysmal atrial fibrillation; I71.4 Abdominal aortic aneurysm, without rupture; Z79.01 Long term (current) use of anticoagulants; Z90.89 Acquired absence of other organs; Z60.2 Problems related to living alone
CPT/HCPCS: 36415; 85025; 85730; 93971; 99284; A4606; Z7610

== ENCOUNTER 2019-05-17 21:06 | Emergency (ER) | payer OTHER ==
[~2019-05-17] VITALS: Ht 188 cm; Wt 84.4 kg
--- NOTE | 2019-05-17 21:42 | NUR ---
WILIAN FROM HOME WITH PARTNER. AAOX4. NO RESP DISTRESS NOTED. AMBULATORY. CAME IN FOR ACCIDENTAL INGESTION OF AN EXTRA DOSE OF COUMADIN. PT REPORTS THAT HE ACCIDENTALLY TOOK AN EXTRA DOSE OF COUMADIN 2MG TODAY, HE TAKE COUMADIN FOR A HEART VALVE REPLACEMENT. PT ALSO REPORT THAT HE HAD A RECENT CEREBRAL ANEURYSM REPAIR ON APR 03. AWAITING MD FOR EVAL.
--- NOTE | 2019-05-17 21:53 | NUR ---
LAB AT BEDSIDE FOR BLOOD DRAW
[2019-05-17 22:01] LABS: BASOPHILS # (AUTO) 0.1 /CMM (0.0-0.2); EOSINOPHILS % (AUTO) 1.4 % (0.0-6.0); HEMATOCRIT 38 % (39-51); LYMPHOCYTES # (AUTO) 1.6 /CMM (0.8-4.8); LYMPHOCYTES % (AUTO) 21.3 % (20.0-44.0); MEAN CORPUSCULAR HGB CONC 34 g/dl (31.0-36.0); MEAN CORPUSCULAR VOLUME 91 fL (80-96); MONOCYTES # (AUTO) 0.6 /CMM (0.1-1.30); MONOCYTES % (AUTO) 7.7 % (2.0-12.0); NEUTROPHILS # (AUTO) 5.2 /CMM (1.8-8.9); NEUTROPHILS % (AUTO) 68.6 % (43.0-81.0); PLATELET COUNT (AUTO) 259 /CMM (150-450); RED BLOOD CELL COUNT(AUTO) 4.19 MIL/uL (4.5-6.0); WHITE BLOOD COUNT (AUTO) 7.6 K/uL (4.3-11.0)
--- NOTE | 2019-05-17 22:57 | NUR ---
Patient discharged to home in stable condition. Written and verbal after care instructions given. Patient verbalizes understanding of instruction. Pt ambulatory with a steady gait
[2019-05-17 22:59] VITALS: BP 135/72
== END 2019-05-17 23:12 | disposition home or self-care (01) ==
LOC: ER 21:08
DX: T45.511A Poisoning by anticoagulants, accidental (unintentional), initial encounter (principal); Z90.89 Acquired absence of other organs; Z60.2 Problems related to living alone; Z79.899 Other long term (current) drug therapy; Z79.01 Long term (current) use of anticoagulants; Y92.89 Other specified places as the place of occurrence of the external cause
CPT/HCPCS: 36415; 85025-TC; 85610-TC